=== PATIENT | male | born 1930 | race Caucasian/White ===

== ENCOUNTER → 2016-12-14 | Outpatient (CLI) | payer MEDICARE | LOC: MHCPAIN 12:55 | DX: G89.29 Other chronic pain (principal); M54.12 Radiculopathy, cervical region; M47.812 Spondylosis without myelopathy or radiculopathy, cervical region; Z79.82 Long term (current) use of aspirin | CPT/HCPCS: G0463 ==

== ENCOUNTER → 2017-01-05 | Outpatient (CLI) | payer MEDICARE | LOC: MHCPAIN 07:52 | DX: M50.123 Cervical disc disorder at C6-C7 level with radiculopathy (principal) | CPT/HCPCS: J1100; Q9967 ==

== ENCOUNTER → 2017-01-20 | Outpatient (CLI) | payer MEDICARE | LOC: MHCPAIN 07:49 | DX: G89.29 Other chronic pain (principal); M50.122 Cervical disc disorder at C5-C6 level with radiculopathy; Z79.82 Long term (current) use of aspirin | CPT/HCPCS: G0463 ==